=== PATIENT | male | born 1960 | race Caucasian/White ===

== ENCOUNTER 2018-06-03 09:55 | Inpatient (IN) | payer MEDICAID ==
[~2018-06-03] VITALS: Ht 170.2 cm; Wt 102.7 kg
[2018-06-03 10:02] VITALS: Ht 170.2 cm; Wt 102.7 kg
[2018-06-03 10:45] LABS: PLATELET COUNT 198 x10^3mcL (130-400)
[2018-06-03 10:55] LABS: microscopic required? YES; urine erythrocyte TRACE (NEGATIVE)
[2018-06-03 11:12] LABS: CALCIUM 8.4 mg/dL (8.5-10.1); CARBON DIOXIDE 27.6 mmol/L (21-32); CHLORIDE SERUM 99 mmol/L (98-107); CREATININE SERUM 0.9 mg/dL (0.7-1.3); GFR1 > 60 mL/min; GLUCOSE SERUM 147 mg/dL (74-106); POTASSIUM SERUM 3.5 mmol/L (3.5-5.1); SODIUM SERUM 134 mmol/L (136-145)
[2018-06-03 11:16] LABS: ALBUMIN 3.8 g/dL (3.4-5.0); ALKALINE PHOSPHATASE 96 U/L (46-116); ALT/SGPT 44 U/L (16-63); AMYLASE 45 U/L (25-115); AST/SGOT 21 U/L (15-37); BILIRUBIN TOTAL 0.61 mg/dL (0.20-1.00); LIPASE 95 IU/L (73-393); TOTAL PROTEIN, SERUM 7.4 g/dL (6.4-8.2)
[2018-06-03 12:15] LABS: BAND NEUTROPHIL 20 % (0-10); MONOCYTE 3 % (0-7); SEGMENTED NEUTROPHILS 66 % (37-75)
[2018-06-03 12:16] LABS: PLATELET MORPHOLOGY PLATELETS NORMAL; rbc morphology (normal/abnorm) NORMAL (NORMAL)
[2018-06-03 16:47] VITALS: BP 133/78
[2018-06-03 20:43] VITALS: BP 105/69
[2018-06-03 20:47] LABS: CHOLESTEROL/HDL RATIO 3.7; MAGNESIUM 1.7 mg/dL (1.8-2.4); PHOSPHOROUS 3.3 mg/dL (2.5-4.9)
[2018-06-03 20:51] VITALS: BP 99/60
[2018-06-03 22:51] LABS: AMPHETAMINE QUAL UR NONE DETECTED (See below)
[2018-06-04 01:48] VITALS: BP 122/72
[2018-06-04 05:32] VITALS: BP 127/71
[2018-06-04 06:49] LABS: PLATELET COUNT 183 x10^3mcL (130-400); RED CELL DISTRIBUTION WIDTH 13.8 % (11.5-14.5)
[2018-06-04 06:55] LABS: CALCIUM 8.1 mg/dL (8.5-10.1); CARBON DIOXIDE 27.6 mmol/L (21-32); CHLORIDE SERUM 102 mmol/L (98-107); CREATININE SERUM 0.8 mg/dL (0.7-1.3); GFR1 > 60 mL/min; GLUCOSE SERUM 118 mg/dL (74-106); POTASSIUM SERUM 3.5 mmol/L (3.5-5.1); SODIUM SERUM 137 mmol/L (136-145)
[2018-06-04 09:35] VITALS: BP 125/83
[2018-06-04 11:30] LABS: BAND NEUTROPHIL 19 % (0-10); BASOPHIL 0 % (0-2); MONOCYTE 6 % (0-7); SEGMENTED NEUTROPHILS 63 % (37-75)
[2018-06-04 11:31] LABS: PLATELET MORPHOLOGY PLATELETS NORMAL
[2018-06-04 17:37] VITALS: BP 104/65
[2018-06-04 20:56] VITALS: BP 112/63
[2018-06-05 05:30] VITALS: BP 97/65
[2018-06-05 06:27] LABS: BASOPHIL % 0.4 % (0-2); PLATELET COUNT 172 x10^3mcL (130-400); RED CELL DISTRIBUTION WIDTH 13.9 % (11.5-14.5)
[2018-06-05 06:42] LABS: CALCIUM 8.1 mg/dL (8.5-10.1); CHLORIDE SERUM 103 mmol/L (98-107); CREATININE SERUM 0.8 mg/dL (0.7-1.3); GFR1 > 60 mL/min; GLUCOSE SERUM 112 mg/dL (74-106); POTASSIUM SERUM 3.5 mmol/L (3.5-5.1); SODIUM SERUM 138 mmol/L (136-145)
[2018-06-05 09:23] VITALS: BP 125/79
[2018-06-05 17:31] VITALS: BP 116/71
[2018-06-05 21:04] VITALS: BP 123/67
[2018-06-06 05:52] VITALS: BP 117/70
[2018-06-06 06:28] LABS: BASOPHIL % 0.5 % (0-2); PLATELET COUNT 188 x10^3mcL (130-400); RED CELL DISTRIBUTION WIDTH 13.6 % (11.5-14.5)
[2018-06-06 06:29] LABS: CALCIUM 8.7 mg/dL (8.5-10.1); CARBON DIOXIDE 27.5 mmol/L (21-32); CHLORIDE SERUM 103 mmol/L (98-107); CREATININE SERUM 0.8 mg/dL (0.7-1.3); GFR1 > 60 mL/min; GLUCOSE SERUM 109 mg/dL (74-106); POTASSIUM SERUM 3.7 mmol/L (3.5-5.1); SODIUM SERUM 139 mmol/L (136-145)
[2018-06-06 09:17] VITALS: BP 129/75
[2018-06-06] MEDS ORDERED: DOXYCYCLINE HY100 MG PO (12:53)
[2018-06-06] MEDS ORDERED: LAC PO (12:55)
[2018-06-06 13:26] VITALS: BP 129/75
== END 2018-06-06 17:10 | disposition home or self-care (01) | DRG 720 ==
LOC: ED 09:55 → MU 15:12
PROVIDERS: Emergency Medicine; Internal Medicine; ADMIT Family Medicine
DX: A41.9 Sepsis, unspecified organism (principal); N17.0 Acute kidney failure with tubular necrosis; E87.1 Hypo-osmolality and hyponatremia; D68.69 Other thrombophilia; E83.42 Hypomagnesemia; E11.9 Type 2 diabetes mellitus without complications; N39.0 Urinary tract infection, site not specified; N45.2 Orchitis; R80.9 Proteinuria, unspecified; F17.200 Nicotine dependence, unspecified, uncomplicated; E66.9 Obesity, unspecified; Z68.36 Body mass index [BMI] 36.0-36.9, adult; Z79.84 Long term (current) use of oral hypoglycemic drugs
CPT/HCPCS: 87491; 87591; 90658; 99406; J0696; J1885; J1956; J7030; Q0092

== ENCOUNTER 2018-11-17 07:26 | Emergency (ER) | payer SELFPAY ==
[~2018-11-17] VITALS: Ht 162.6 cm; Wt 98.4 kg
[~2018-11-17 07:26] MED LIST: DOXYCYCLINE HY100 MG PO; LAC PO
[2018-11-17 07:36] VITALS: Ht 162.6 cm; Wt 98.4 kg
[2018-11-17 08:27] VITALS: BP 132/80
== END 2018-11-17 08:27 | disposition home or self-care (01) ==
LOC: ED 07:26
DX: M10.9 Gout, unspecified (principal)
CPT/HCPCS: J1885

== ENCOUNTER 2019-03-01 15:58 | Emergency (ER) | payer SELFPAY ==
[~2019-03-01] VITALS: Ht 175.3 cm; Wt 98.0 kg
[2019-03-01 16:18] VITALS: Ht 175.3 cm; Wt 98.0 kg
[2019-03-01 18:09] VITALS: BP 135/71
== END 2019-03-01 18:09 | disposition home or self-care (01) ==
LOC: ED 15:58
DX: S83.92XA Sprain of unspecified site of left knee, initial encounter (principal); L03.115 Cellulitis of right lower limb; X58.XXXA Exposure to other specified factors, initial encounter; Y93.89 Activity, other specified; Y92.89 Other specified places as the place of occurrence of the external cause; Y99.8 Other external cause status